=== PATIENT | male | born 1950 | race Caucasian/White ===

== ENCOUNTER → 2017-03-14 | Outpatient (CLI) | payer OTHER ==
--- NOTE | 2017-03-14 10:20 | DIAGNOSTIC IMAGING REPORT ---
PROCEDURE: US KIDNEY/RENAL COMPLETE INDICATION: URINARY RETENTION TECHNIQUE: Transabdominal scans of the kidneys with calculation of resistive indices. Prevoid and postvoid bladder volumes were obtained. COMPARISON: None. FINDINGS: RIGHT: Kidney measures 10.6 x 5.7 x 5.8 cm. Cortex measures 1.1 cm. No calculi or hydronephrosis. Normal resistive indices measure 0.66 or less. LEFT: Kidney measures 11.2 x 6.4 x 7 cm. Cortex measures 1.3 cm. No calculi or hydronephrosis. Normal resistive indices measure 0.69 or less. BLADDER: Prostate measures 4.2 x 4.3 x 2.7 cm. There is a large bladder diverticulum which measures 9 x 8 x 5 cm. Prevoid bladder volume 525 ml, postvoid volume 426 ml. IMPRESSION: 1. Normal kidneys 2. Mildly enlarged prostate 3. Large bladder diverticulum 4. 426 ml postvoid residual bladder volume
== END ==
LOC: US SRH 08:56
DX: N32.3 Diverticulum of bladder (principal); N40.0 Benign prostatic hyperplasia without lower urinary tract symptoms